=== PATIENT | male | born 1940 | race Caucasian/White ===

== ENCOUNTER 2024-06-13 09:17 | Emergency (ER) | payer MEDICARE, BC | END 2024-06-13 09:34 | disposition home or self-care (01) | LOC: BURERS 09:17 | DX: S01.01XD Laceration without foreign body of scalp, subsequent encounter (principal); I10 Essential (primary) hypertension; E11.9 Type 2 diabetes mellitus without complications; X58.XXXD Exposure to other specified factors, subsequent encounter; Z87.891 Personal history of nicotine dependence ==